=== PATIENT | female | born 1995 | race Caucasian/White ===

== ENCOUNTER 2023-07-28 22:41 | Emergency (ER) | payer MEDICAID ==
[~2023-07-28] VITALS: Ht 157.5 cm; Wt 64.0 kg
[2023-07-28 22:42] VITALS: PULSE 85
[2023-07-28 22:49] VITALS: BP 112/73; RESP 18; TEMP 98.1; O2SAT 100
[2023-07-28] MEDS ORDERED: P50 MT (23:52)
[2023-07-28] MEDS ORDERED: CETI10CA11 PO (23:52)
== END 2023-07-29 00:07 | disposition home or self-care (01) ==
LOC: ER 22:41
DX: L23.9 Allergic contact dermatitis, unspecified cause (principal)
CPT/HCPCS: 99283; Z7610